=== PATIENT | female | born 1985 | race Caucasian/White ===

== ENCOUNTER 2016-12-07 18:47 | Emergency (ER) | payer OTHER ==
[~2016-12-07] VITALS: Ht 167.6 cm; Wt 61.2 kg
[~2016-12-07 18:47] MED LIST: Motrin PO; NATALCARE RX1 TABLE1 PO; NEXIUM20 MG PO; NOVOLOG PE100 UNITS/ SC; Percocet 5/325,Endoc PO
[2016-12-07 19:05] LABS: POINT-OF-CARE METER ID UU14100415; POINT-OF-CARE USER ID NUTMMM10
[2016-12-07 19:11] LABS: BASOPHIL COUNT 0.1 K/uL (0-0.1); EOSINOPHIL (%) 0.3 % (0-5); HEMATOCRIT 36.1 % (36.0-46.0); IMMATURE GRANULOCYTE (%) 0.4 % (0.0-0.7); INSTRUMENT ABS NEUTROPHIL CT 3.5 K/uL; LYMPHOCYTE COUNT 3.4 K/uL (1.0-2.8); MCH 30.3 PG (29.0-34.0); MCHC 33.2 G/DL (30.0-36.0); MCV 91.2 FL (83-99); MEAN PLAT.VOLUME 10.7 uM^3 (9.5-12.4); MONOCYTE (%) 10.6 % (3-12); MONOCYTE COUNT 0.8 K/uL (0-0.8); NEUTROPHIL (%) 44.5 % (45-76); NEUTROPHIL COUNT 3.5 K/uL (1.8-6.4); PLATELET COUNT 158 K/uL (156-360); RBC DIS.WIDTH-SD 40.5 % (39-53); RED BLOOD COUNT 3.96 M/uL (3.80-5.20)
[2016-12-07 19:16] LABS: WHITE BLOOD COUNT 7.9 K/uL (4.1-10.2)
[2016-12-07 19:19] LABS: CARBON DIOXIDE (BICARBONATE) 27.1 MEQ/L (20-31)
[2016-12-07 19:22] LABS: CHLORIDE 105 mEq/L (99-109); POTASSIUM 4.1 mEq/L (3.7-5.4); SODIUM 136 mEq/L (136-147)
[2016-12-07 19:24] LABS: GLUCOSE 161 mg/dL (70-99)
[2016-12-07 19:26] LABS: ANION GAP 8 MEQ/L (2-14); TOTAL BILIRUBIN 0.4 mg/dL (0.0-1.0)
[2016-12-07 19:28] LABS: ALKALINE PHOSPHATASE 43 IU/L (3-129); GFR ESTIMATE (CALCULATED) > 59 mL/min/
[2016-12-07 19:29] LABS: UREA NITROGEN (BUN) 18 mg/dL (9-23)
[2016-12-07 19:30] LABS: DIRECT BILIRUBIN 0.2 mg/dL (0.0-0.3)
[2016-12-07 19:31] LABS: LIPASE 16 U/L (1.0-51.0)
[2016-12-07 20:25] LABS: BILIRUBIN NEGATIVE; BLOOD NEGATIVE; COLOR YELLOW ((YELLOW)); GLUCOSE (STRIP) 50; KETONES 5; LEUKOCYTES NEGATIVE; NITRITE NEGATIVE; PROTEIN (STRIP) 30; SPECIFIC GRAVITY 1.024 (1.000-1.030); UROBILINOGEN 0.2 MG/DL (0.2-1.0)
[2016-12-07 20:37] LABS: ADD MEDTOX COMMENT Y; AMPHETAMINE PRESUMPTIVE POSITIVE (500 ng/mL); BARBITURATES NEGATIVE (200 ng/mL); BENZODIAZEPINES PRESUMPTIVE POSITIVE (150 ng/mL); COCAINE NEGATIVE (150 ng/mL); INTERNAL CONTROLS VALID? YES; METHADONE NEGATIVE (200 ng/mL); METHAMPHETAMINE NEGATIVE (500 ng/mL); OPIATES (MORPHINE) NEGATIVE (100 ng/mL); OXYCODONE NEGATIVE (100 ng/mL); PHENCYCLIDINE NEGATIVE (25 ng/mL); PROPOXYPHENE NEGATIVE (300 ng/mL); THC CANNABINOIDS NEGATIVE (50 ng/mL); TRICYCLIC ANTIDEPRESSANTS NEGATIVE (300 ng/mL)
[2016-12-07 20:38] LABS: ADD MIUA? NO; UCUL ADDED? NO
[2016-12-07 20:41] LABS: QUANTITATIVE HCG < 4.0 MIU/ML
[2016-12-07] MEDS ORDERED: VYVANSE30 MG PO (21:04)
[2016-12-07] MEDS ORDERED: DIVALPROEX SOD250 M1 PO (21:04)
[2016-12-07 21:05] LABS: BENZODIAZEPINES QUANT VALUE 0 NG/ML
[2016-12-07] MEDS ORDERED: DIVALPROEX SOD500 M1 PO (21:05)
[2016-12-07] MEDS ORDERED: LEVOCETIRIZINE D5 MG PO (21:05)
[2016-12-07 21:06] LABS: BENZODIAZEPINES, URINE SCREEN Negative (200 ng/mL)
[2016-12-07] MEDS ORDERED: DIAZEPAM5 MG PO (21:06)
[2016-12-07] MEDS ORDERED: NOVOLOG 10100 UNITS/ SC (21:06)
[2016-12-07 21:46] VITALS: BP 102/62
== END 2016-12-07 21:47 | disposition home or self-care (01) ==
LOC: EME → EDBD 18:47 → EME 21:47
PROVIDERS: Emergency Medicine
DX: E11.65 Type 2 diabetes mellitus with hyperglycemia (principal); E86.0 Dehydration; R11.0 Nausea; R10.9 Unspecified abdominal pain; Z96.41 Presence of insulin pump (external) (internal); Z79.4 Long term (current) use of insulin
CPT/HCPCS: 80048; 80076; 80164; 81003; 82803; 82948; 83690; 84702; 84999; 85025; 99281; 99285; J7030

== ENCOUNTER 2017-08-08 16:11 | Emergency (ER) | payer OTHER ==
[~2017-08-08] VITALS: Ht 167.6 cm; Wt 57.4 kg
[~2017-08-08 16:11] MED LIST changes: +DIAZEPAM5 MG PO; +DIVALPROEX SOD250 M1 PO; +DIVALPROEX SOD500 M1 PO; +LEVOCETIRIZINE D5 MG PO; +NOVOLOG 10100 UNITS/ SC; +VYVANSE30 MG PO
[2017-08-08 17:36] LABS: HEMATOCRIT 36.7 % (36.0-46.0); MCH 32.7 PG (29.0-34.0); MCHC 34.1 G/DL (30.0-36.0); MCV 96.1 FL (83-99); MEAN PLAT.VOLUME 9.5 uM^3 (9.5-12.4); PLATELET COUNT 177 K/uL (156-360); RBC DIS.WIDTH-CV 13.8 % (11.8-14.6); RBC DIS.WIDTH-SD 48.7 % (39-53); RED BLOOD COUNT 3.82 M/uL (3.80-5.20); WHITE BLOOD COUNT 8.4 K/uL (4.1-10.2)
[2017-08-08 17:40] LABS: CARBON DIOXIDE (BICARBONATE) 27.8 MEQ/L (20-31)
[2017-08-08 17:45] LABS: CHLORIDE 96 mEq/L (99-109); POTASSIUM 5.4 mEq/L (3.7-5.4); SODIUM 129 mEq/L (136-147)
[2017-08-08 17:48] LABS: ANION GAP 11 MEQ/L (2-14)
[2017-08-08 17:49] LABS: TOTAL BILIRUBIN 0.8 mg/dL (0.0-1.0)
[2017-08-08 17:57] LABS: ADD MIUA? NO; BILIRUBIN NEGATIVE; BLOOD NEGATIVE; COLOR STRAW ((YELLOW)); GLUCOSE (STRIP) >=500; KETONES 20; LEUKOCYTES NEGATIVE; NITRITE NEGATIVE; PROTEIN (STRIP) NEGATIVE; SPECIFIC GRAVITY 1.025 (1.000-1.030); UCUL ADDED? NO; UROBILINOGEN 0.2 MG/DL (0.2-1.0)
[2017-08-08 18:17] LABS: ALKALINE PHOSPHATASE 59 IU/L (3-129)
[2017-08-08 18:18] LABS: GFR ESTIMATE (CALCULATED) > 59 mL/min/
[2017-08-08 18:19] LABS: UREA NITROGEN (BUN) 13 mg/dL (9-23)
[2017-08-08 18:21] LABS: LIPASE 23 U/L (1.0-51.0)
[2017-08-08 18:31] LABS: GLUCOSE 642 mg/dL (70-99)
[2017-08-08 19:14] LABS: POINT-OF-CARE METER ID UU13113800
[2017-08-08 21:01] LABS: CHLORIDE 103 mEq/L (99-109)
[2017-08-08 21:04] LABS: ANION GAP 8 MEQ/L (2-14)
[2017-08-08 21:05] LABS: GLUCOSE 142 mg/dL (70-99); POTASSIUM 4.3 mEq/L (3.7-5.4); SODIUM 137 mEq/L (136-147)
[2017-08-08 21:06] LABS: GFR ESTIMATE (CALCULATED) > 59 mL/min/
[2017-08-08 21:07] LABS: UREA NITROGEN (BUN) 12 mg/dL (9-23)
[2017-08-08 21:14] LABS: QUANTITATIVE HCG < 4.0 MIU/ML
[2017-08-09 00:18] LABS: POINT-OF-CARE METER ID UU13113747
[2017-08-09 01:16] VITALS: BP 107/87
[2017-08-09 09:40] LABS: POINT-OF-CARE METER ID UU13113778
== END 2017-08-09 01:18 | disposition home or self-care (01) ==
LOC: EME 16:11
PROVIDERS: Physician Assistant
DX: E10.65 Type 1 diabetes mellitus with hyperglycemia (principal); E87.1 Hypo-osmolality and hyponatremia; K29.70 Gastritis, unspecified, without bleeding; Z96.41 Presence of insulin pump (external) (internal); Z79.4 Long term (current) use of insulin; F31.9 Bipolar disorder, unspecified; M19.90 Unspecified osteoarthritis, unspecified site; M85.80 Other specified disorders of bone density and structure, unspecified site; Z88.0 Allergy status to penicillin; Z88.1 Allergy status to other antibiotic agents
CPT/HCPCS: 71020; 74177; 80048 91; 80053; 81003; 82010; 82803; 82948; 83690; 84702; 85027; 99281; 99285; J2405; J7030

== ENCOUNTER → 2017-10-14 | Outpatient (CLI) | payer OTHER | END | disposition home or self-care (01) | LOC: NUC 09-16 08:30 | DX: R10.13 Epigastric pain (principal); R11.0 Nausea | CPT/HCPCS: 78264; A9541 ==

== ENCOUNTER 2017-12-03 18:23 | Emergency (ER) | payer OTHER ==
[~2017-12-03] VITALS: Ht 160 cm; Wt 59.1 kg
[2017-12-03 19:08] LABS: HEMOGLOBIN 11.6 G/DL (11.9-15.5); MCH 32.7 PG (29.0-34.0); MCHC 35.2 G/DL (30.0-36.0); PLATELET COUNT 161 K/uL (156-360); RBC DIS.WIDTH-CV 12.1 % (11.8-14.6); RBC DIS.WIDTH-SD 42.1 % (39-53); RED BLOOD COUNT 3.55 M/uL (3.80-5.20); WHITE BLOOD COUNT 6.7 K/uL (4.1-10.2)
[2017-12-03 19:17] LABS: CHLORIDE 105 mEq/L (99-109); POTASSIUM 4.5 mEq/L (3.7-5.4); SODIUM 139 mEq/L (136-147)
[2017-12-03 19:18] LABS: MAGNESIUM 1.9 mg/dL (1.3-2.7)
[2017-12-03 19:19] LABS: GLUCOSE 205 mg/dL (70-99)
[2017-12-03 19:23] LABS: CREATININE 0.7 mg/dL (0.6-1.3); GFR ESTIMATE (CALCULATED) > 59 mL/min/
[2017-12-03 19:24] LABS: UREA NITROGEN (BUN) 13 mg/dL (9-23)
[2017-12-03 19:26] LABS: CREATINE KINASE 71 IU/L (1-294)
[2017-12-03 19:42] LABS: APPEARANCE CLOUDY ((CLEAR)); BILIRUBIN NEGATIVE; BLOOD NEGATIVE; COLOR YELLOW ((YELLOW)); GLUCOSE (STRIP) 50; KETONES 5; LEUKOCYTES NEGATIVE; NITRITE NEGATIVE; PROTEIN (STRIP) NEGATIVE; UROBILINOGEN 0.2 MG/DL (0.2-1.0)
[2017-12-03 19:56] LABS: AMPHETAMINE NEGATIVE (500 ng/mL); BARBITURATES NEGATIVE (200 ng/mL); BENZODIAZEPINES PRESUMPTIVE POSITIVE (150 ng/mL); BUPRENORPHINE NEGATIVE (10 ng/mL); COCAINE NEGATIVE (150 ng/mL); METHADONE NEGATIVE (200 ng/mL); METHAMPHETAMINE NEGATIVE (500 ng/mL); OPIATES (MORPHINE) NEGATIVE (100 ng/mL); OXYCODONE NEGATIVE (100 ng/mL); PHENCYCLIDINE NEGATIVE (25 ng/mL); PROPOXYPHENE NEGATIVE (300 ng/mL); THC CANNABINOIDS NEGATIVE (50 ng/mL); TRICYCLIC ANTIDEPRESSANTS NEGATIVE (300 ng/mL)
[2017-12-03 20:16] LABS: EPITHELIAL CELLS NONE SEEN /HPF; MUCUS NONE SEEN /LPF; RED BLOOD CELLS NONE SEEN /HPF (0-5); WHITE BLOOD CELLS NONE SEEN /HPF (0-5)
[2017-12-03 20:17] LABS: AMORPHOUS PHOSPHATE CRYSTALS 2+; BACTERIA RARE /HPF
[2017-12-03 20:24] LABS: BENZODIAZEPINES, URINE SCREEN POSITIVE (200 ng/mL)
[2017-12-03] MEDS ORDERED: NAPROSYN500 MG PO (22:09)
[2017-12-03] MEDS ORDERED: REGLAN10 MG PO (22:09)
[2017-12-03 22:29] VITALS: BP 112/78
[2017-12-04 09:36] LABS: LYME DISEASE SEROLOGY SCREEN NEGATIVE (NEGATIVE)
== END 2017-12-03 22:36 | disposition home or self-care (01) ==
LOC: EME 18:23
PROVIDERS: Physician Assistant
DX: F07.81 Postconcussional syndrome (principal); T42.6X5A Adverse effect of other antiepileptic and sedative-hypnotic drugs, initial encounter; E11.9 Type 2 diabetes mellitus without complications; Z79.4 Long term (current) use of insulin; F31.9 Bipolar disorder, unspecified; Z96.41 Presence of insulin pump (external) (internal); Z88.0 Allergy status to penicillin; Z88.1 Allergy status to other antibiotic agents
CPT/HCPCS: 80048; 81003; 82550; 83735; 84999; 85027; 86618; 99281; 99284; J1200; J1885; J2765; J7030

== ENCOUNTER 2018-03-20 12:38 | Emergency (ER) | payer OTHER ==
[~2018-03-20] VITALS: Ht 167.6 cm; Wt 56.8 kg
[~2018-03-20 12:38] MED LIST changes: +NAPROSYN500 MG PO; +REGLAN10 MG PO
[2018-03-20 14:16] LABS: HEMATOCRIT 33.7 % (36.0-46.0); HEMOGLOBIN 11.7 G/DL (11.9-15.5); MCH 30.4 PG (29.0-34.0); MCHC 34.7 G/DL (30.0-36.0); MCV 87.5 FL (83-99); PLATELET COUNT 254 K/uL (156-360); RBC DIS.WIDTH-CV 12.1 % (11.8-14.6); RBC DIS.WIDTH-SD 38.9 % (39-53); RED BLOOD COUNT 3.85 M/uL (3.80-5.20); WHITE BLOOD COUNT 7.3 K/uL (4.1-10.2)
[2018-03-20 14:23] LABS: APPEARANCE SL.HAZY ((CLEAR)); BILIRUBIN NEGATIVE; BLOOD MODERATE; COLOR YELLOW ((YELLOW)); GLUCOSE (STRIP) NEGATIVE; KETONES NEGATIVE; LEUKOCYTES MODERATE; NITRITE NEGATIVE; PROTEIN (STRIP) NEGATIVE; SPECIFIC GRAVITY 1.018 (1.000-1.030); UROBILINOGEN 0.2 MG/DL (0.2-1.0)
[2018-03-20 14:24] LABS: CHLORIDE 107 mEq/L (99-109); POTASSIUM 3.9 mEq/L (3.7-5.4); SODIUM 140 mEq/L (136-147)
[2018-03-20 14:26] LABS: GLUCOSE 152 mg/dL (70-99)
[2018-03-20 14:30] LABS: CREATININE 0.7 mg/dL (0.6-1.3); GFR ESTIMATE (CALCULATED) > 59 mL/min/
[2018-03-20 14:31] LABS: UREA NITROGEN (BUN) 10 mg/dL (9-23)
[2018-03-20 14:32] LABS: AMPHETAMINE NEGATIVE (500 ng/mL); BACTERIA RARE /HPF; BARBITURATES NEGATIVE (200 ng/mL); BENZODIAZEPINES PRESUMPTIVE POSITIVE (150 ng/mL); BUPRENORPHINE NEGATIVE (10 ng/mL); COCAINE NEGATIVE (150 ng/mL); EPITHELIAL CELLS 1+ /HPF; METHADONE NEGATIVE (200 ng/mL); METHAMPHETAMINE NEGATIVE (500 ng/mL); MUCUS 1+ /LPF; OPIATES (MORPHINE) NEGATIVE (100 ng/mL); OXYCODONE NEGATIVE (100 ng/mL); PHENCYCLIDINE NEGATIVE (25 ng/mL); PROPOXYPHENE NEGATIVE (300 ng/mL); RED BLOOD CELLS 0-5 /HPF (0-5); THC CANNABINOIDS NEGATIVE (50 ng/mL); TRICYCLIC ANTIDEPRESSANTS NEGATIVE (300 ng/mL); UCUL ADDED? YES
[2018-03-20 15:15] LABS: BENZODIAZEPINES, URINE SCREEN POSITIVE (200 ng/mL)
[2018-03-20 16:09] LABS: THYROTROPIN (TSH) 1.7 MIU/L (0.4-5.5)
[2018-03-20 16:49] VITALS: BP 114/77
== END 2018-03-20 16:50 | disposition home or self-care (01) ==
LOC: EME 12:38
PROVIDERS: Emergency Medicine
DX: F32.9 Major depressive disorder, single episode, unspecified (principal); F31.9 Bipolar disorder, unspecified; F41.9 Anxiety disorder, unspecified; E11.9 Type 2 diabetes mellitus without complications; Z96.41 Presence of insulin pump (external) (internal); G43.909 Migraine, unspecified, not intractable, without status migrainosus; M19.90 Unspecified osteoarthritis, unspecified site; M85.80 Other specified disorders of bone density and structure, unspecified site; Z88.0 Allergy status to penicillin; Z88.1 Allergy status to other antibiotic agents; Z88.8 Allergy status to other drugs, medicaments and biological substances
CPT/HCPCS: 80048; 81003; 84443; 84999; 85027; 87086; 90839; 99281; 99285